=== PATIENT | male | born 1935 | race Caucasian/White ===

== ENCOUNTER 2020-09-16 05:49 | Emergency (ER) | payer MEDICARE, BC, MEDICAID, OTHER ==
[2020-09-16] MEDS ORDERED: Sodium Chloride 0.9% 1,000 ML IV ONE (05:56)
[2020-09-16] MEDS ORDERED: Sodium Chloride 0.9% 10 ML Syringe FLUSH PRN (05:56)
--- NOTE | 2020-09-16 06:00 | EDM.PDOC ---
ED HPI GENERAL MEDICAL PROBLEM - General Chief Complaint: General Stated Complaint: Hypotension Time Seen by Provider: 09/16/20 05:49 Source of Information: Reports: EMS, [facility] Records - History of Present Illness INITIAL COMMENTS - FREE TEXT/NARRATIVE: Rajiv Salgado, 85-year-old male, presents by ambulance secondary of significant hypotension and incontinence of stool that occurred this morning at 0515 hrs. He responds only to pain to examination of the abdomen and is unable to provide any information at time of his arrival. Limited medical history is obtainable via the chart that accompanies the patient and review of [facility] chart gives no recent details precipitating this occurrence. Was seen this month for nursing facility recertification. Onset: Today Onset Date: 09/16/20 Onset Time: 05:15 Duration: Minutes: Location: Reports: Abdomen - Related Data Allergies Allergy/AdvReac Type Severity Reaction Status Date / Time No Known Drug Allergies Allergy Other Verified 09/16/20 06:05 Home Meds: Home Meds Acetaminophen [Tylenol] 650 mg PO BID 09/16/20 [History] Acetaminophen [Tylenol] 650 mg PO Q6H PRN 09/16/20 [History] Docusate Sodium [Colace] 100 mg PO DAILY PRN 09/16/20 [History] Melatonin 3 mg PO BEDTIME PRN 09/16/20 [History] Memantine HCl [Namenda] 10 mg PO DAILY 09/16/20 [History] Saliva Substitute Combo No.9 [Biotene] 2 spray PO QID 09/16/20 [History] Sennosides/Docusate Sodium [Senexon-S 50-8.6 mg Tablet] 2 tab PO BID PRN 09/16/20 [History] Sulfamethoxazole/Trimethoprim [Bactrim Ds Tablet] 1 each PO BID 7 Days #14 tablet 09/16/20 [Rx] bisacodyL [Dulcolax] 10 mg RECTAL DAILY PRN 09/16/20 [History] polyethylene glycoL 3350 [MiraLAX] 17 gm PO DAILY 09/16/20 [History] Past Medical History Cardiovascular History: Reports: Blood Clots/VTE/DVT, Hypertension Respiratory History: Reports: Other (See Below) (COVID-19 hospitalization 05/03/2020 discharge 05/18/2020) Gastrointestinal History: Reports: Chronic Constipation, Other (See Below) (Malnutrition E 46) Musculoskeletal History: Reports: Other (See Below) (Repeated falls) Neurological History: Reports: Alzheimers Disease Endocrine/Metabolic History: Reports: Other (See Below) (Disturbance of salivary secretion K 11.7) - Infectious Disease History Infectious Disease History: Reports: Other (See Below) (COVID-05 June 2020) - History Comment History Comment: [facility]. 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 HEENT is negative for discharge nor deformity. Pupils are 4 mm and slow to respond with no evidence of icterus nor injection. Neck is soft supple and do not appreciate JVD nor bruit. Thorax is mildly diminished but there is very limited inspiratory effort with scattered rhonchi do not appreciate any wheeze. Cardiac distant S1-S2 with a grade 1 systolic murmur. Abdomen has bowel sounds but is extremely tender in the right lower quadrant and left lower quadrant to examination. Lower extremities are free of edema with warm dry skin. He has an ankle bracelet from the nursing facility on his right ankle. #1 Interpretation EKG Date: 09/16/20 Time: 06:15 Rhythm: NSR [place]: Normal P-Wave: Present QRS: Normal ST-T: Normal QT: Normal Comparison: NA - No Prior EKG Course - Vital Signs Last Recorded V/S: Last Vital Signs Temp 97.2 F 09/16/20 05:52 Pulse 85 09/16/20 07:59 Resp 16 09/16/20 07:19 BP 106/73 09/16/20 07:59 Pulse Ox 97 09/16/20 07:19 - Orders/Labs/Meds Orders: Active Orders 24 hr Category Date Time Status EKG Documentation Completion [RC] ASDIRECTED Care 09/16/20 05:56 Active Insert Velarde Catheter [Insert Urinary Catheter] [OM.PC] Care 09/16/20 07:30 Ordered Q24H Peripheral IV Care [RC] . DIRECTED Care 09/16/20 05:56 Active Urinary Catheter Assessment [RC] ASDIRECTED Care 09/16/20 07:17 Active CULTURE URINE [RM] Urgent Lab 09/16/20 07:45 Received Sodium Chloride 0.9% [Normal Saline] 1,000 ml Med 09/16/20 07:00 Active IV ASDIRECTED Sodium Chloride 0.9% [Normal Saline] 50 ml Med 09/16/20 08:30 Active IV ASDIRECTED Sodium Chloride 0.9% [Saline Flush] Med 09/16/20 05:56 Active 10 ml FLUSH Q8HR PRN Isolation [COMM] Routine Oth 09/16/20 06:07 Ordered Peripheral IV Insertion Adult [OM.PC] Routine Oth 09/16/20 05:56 Ordered EKG 12 Lead [EK] Urgent Ther 09/16/20 05:55 Ordered Medication Orders Sodium Chloride (Normal Saline) 1,000 mls @ 200 mls/hr IV ASDIRECTED ELIZABETH Last Infusion: 09/16/20 07:20 Dose: 999 mls/hr Documented by: Admin: 09/16/20 07:06 Dose: 200 mls/hr Documented by: MUNDO Sodium Chloride (Normal Saline) 50 mls @ 200 mls/hr IV ASDIRECTED ELIZABETH Last Admin: 09/16/20 08:29 Dose: 200 mls/hr Documented by: ERIN Sodium Chloride (Saline Flush) 10 ml FLUSH Q8HR PRN PRN Reason: keep vein open Labs: Laboratory Tests 09/16/20 09/16/20 09/16/20 Range/Units 06:00 06:00 06:00 WBC 14.08 H (5.00-10.00) 10^3/uL RBC 5.50 (4.50-6.00) 10^6/uL Hgb 13.6 (13.0-17.0) g/dL Hct 44.6 (40.0-52.0) % MCV 81.1 L (82.0-92.0) fL MCH 24.7 L (27.0-31.0) pg MCHC 30.5 L (32.0-36.0) g/dL RDW 15.1 H (11.5-14.5) % Plt Count 320 (150-400) 10^3/uL MPV 9.0 (7.4-10.4) fL Immature Gran % (Auto) 0.4 (0.0-5.0) % Neut % (Auto) 77.2 H (50.0-70.0) % Lymph % (Auto) 13.8 L (20.0-40.0) % [place] % (Auto) 8.2 H (2.0-8.0) % Eos % (Auto) 0.1 L (1.0-3.0) % Baso % (Auto) 0.3 (0.0-1.0) % Neut # (Auto) 10.85 H (2.50-7.00) 10^3/uL Lymph # (Auto) 1.95 (1.00-4.00) 10^3/uL [place] # (Auto) 1.16 H (0.10-0.80) 10^3/uL Eos # (Auto) 0.02 L (0.10-0.30) 10^3/uL Baso # (Auto) 0.04 (0.00-0.10) 10^3/uL Immature Gran # (Auto) 0.06 (0.00-0.50) 10^3/uL Sodium 139 (136-145) mmol/L Potassium 4.1 (3.5-5.1) mmol/L Chloride 101 (98-107) mmol/L Carbon Dioxide 23.3 (21.0-32.0) mmol/L Anion Gap 18.8 H (5-15) mmol/L BUN 19 H (7-18) mg/dL Creatinine 0.98 (0.51-1.17) mg/dL Est Cr Clr Drug Dosing 60.11 mL/min Estimated GFR (MDRD) > 60 mL/min Glucose 208 H (70-140) mg/dL Lactic Acid 6.0 H (0.4-2.0) mmol/L Calcium 9.2 (8.7-10.3) mg/dL Total Bilirubin 1.0 (0.2-1.0) mg/dL AST 70 H (15-37) U/L ALT 40 (14-63) U/L Alkaline Phosphatase 136 H (46-116) U/L Creatine Kinase 38 (26-276) U/L CK-MB (CK-2) 0.54 (0.00-3.60) ng/mL Troponin I < 0.017 (0.000-0.056) ng/mL Total Protein 6.5 (6.4-8.2) g/dL Albumin 3.16 L (3.40-5.00) g/dL Specimen Type Urine Color (YELLOW) Urine Appearance (CLEAR) Urine pH (5.0-9.0) Ur Specific [place] (1.005-1.030) Urine Protein (NEGATIVE) mg/dL Urine Glucose (UA) (NEGATIVE) mg/dL Urine Ketones (NEGATIVE) mg/dL Urine Occult Blood (NEGATIVE) Urine Nitrite (NEGATIVE) Urine Bilirubin (NEGATIVE) Urine Urobilinogen (0.2-1.0) E.U./dL Ur Leukocyte Esterase (NEGATIVE) U Hyaline Cast (Auto) Urine RBC (0-5) /HPF Urine WBC (0-5) /HPF Ur Epithelial Cells /LPF Urine Bacteria (NONE TO FEW) /HPF Urine Mucus (NEGATIVE) /LPF SARS CoV-2 RNA Rapid JENNY (NEGATIVE) 09/16/20 09/16/20 Range/Units 06:40 07:45 WBC (5.00-10.00) 10^3/uL RBC (4.50-6.00) 10^6/uL Hgb (13.0-17.0) g/dL Hct (40.0-52.0) % MCV (82.0-92.0) fL MCH (27.0-31.0) pg MCHC (32.0-36.0) g/dL RDW (11.5-14.5) % Plt Count (150-400) 10^3/uL MPV (7.4-10.4) fL Immature Gran % (Auto) (0.0-5.0) % Neut % (Auto) (50.0-70.0) % Lymph % (Auto) (20.0-40.0) % [place] % (Auto) (2.0-8.0) % Eos % (Auto) (1.0-3.0) % Baso % (Auto) (0.0-1.0) % Neut # (Auto) (2.50-7.00) 10^3/uL Lymph # (Auto) (1.00-4.00) 10^3/uL [place] # (Auto) (0.10-0.80) 10^3/uL Eos # (Auto) (0.10-0.30) 10^3/uL Baso # (Auto) (0.00-0.10) 10^3/uL Immature Gran # (Auto) (0.00-0.50) 10^3/uL Sodium (136-145) mmol/L Potassium (3.5-5.1) mmol/L Chloride (98-107) mmol/L Carbon Dioxide (21.0-32.0) mmol/L Anion Gap (5-15) mmol/L BUN (7-18) mg/dL Creatinine (0.51-1.17) mg/dL Est Cr Clr Drug Dosing mL/min Estimated GFR (MDRD) mL/min Glucose (70-140) mg/dL Lactic Acid (0.4-2.0) mmol/L Calcium (8.7-10.3) mg/dL Total Bilirubin (0.2-1.0) mg/dL AST (15-37) U/L ALT (14-63) U/L Alkaline Phosphatase (46-116) U/L Creatine Kinase (26-276) U/L CK-MB (CK-2) (0.00-3.60) ng/mL Troponin I (0.000-0.056) ng/mL Total Protein (6.4-8.2) g/dL Albumin (3.40-5.00) g/dL Specimen Type [place] Urine Color Yellow (YELLOW) Urine Appearance Slightly cloudy H (CLEAR) Urine pH 5.5 (5.0-9.0) Ur Specific [place] >= 1.030 (1.005-1.030) Urine Protein 100 H (NEGATIVE) mg/dL Urine Glucose (UA) Negative (NEGATIVE) mg/dL Urine Ketones Trace H (NEGATIVE) mg/dL Urine Occult Blood Moderate H (NEGATIVE) Urine Nitrite Positive H (NEGATIVE) Urine Bilirubin Moderate H (NEGATIVE) Urine Urobilinogen 1.0 (0.2-1.0) E.U./dL Ur Leukocyte Esterase Trace H (NEGATIVE) U Hyaline Cast (Auto) Moderate Urine RBC 75-100 H (0-5) /HPF Urine WBC 10-20 H (0-5) /HPF Ur Epithelial Cells Moderate H /LPF Urine Bacteria Moderate H (NONE TO FEW) /HPF Urine Mucus Few H (NEGATIVE) /LPF SARS CoV-2 RNA Rapid JENNY Negative (NEGATIVE) Meds: Medications Generic Name Dose Route Start Last Admin Trade Name Freq PRN Reason Stop Dose Admin Sodium Chloride 1,000 mls @ 200 mls/hr 09/16/20 07:00 09/16/20 07:20 Normal Saline IV 999 mls/hr ASDIRECTED ELIZABETH Infusion Sodium Chloride 50 mls @ 200 mls/hr 09/16/20 08:30 09/16/20 08:29 Normal Saline IV 200 mls/hr ASDIRECTED ELIZABETH Administration Sodium Chloride 10 ml 09/16/20 05:56 Saline Flush FLUSH Q8HR PRN keep vein open Discontinued Medications Generic Name Dose Route Start Last Admin Trade Name Freq PRN Reason Stop Dose Admin Sodium Chloride 1,000 mls @ 999 mls/hr 09/16/20 05:56 09/16/20 06:04 Normal Saline IV 09/16/20 06:56 999 mls/hr .BOLUS ONE Administration Meropenem 1 gm/ Sodium 100 mls @ 200 mls/hr 09/16/20 07:22 09/16/20 07:36 Chloride IV 09/16/20 07:51 200 mls/hr ONETIME ONE Administration Sodium Chloride Confirm 09/16/20 07:34 09/16/20 07:58 Normal Saline Administered 09/16/20 07:35 Not Given Dose 100 mls @ as directed .ROUTE .STK-MED ONE Iopamidol 75 ml 09/16/20 08:18 09/16/20 08:29 Isovue-370 (76%) IVPUSH 09/16/20 08:19 75 ml ONETIME ONE Administration - Re-Assessments/Exams Free Text/Narrative Re-Assessment/Exam: 09/16/20 06:32 Mr. Salgado does respond now to verbal conversation denying any precipitating evidence of this event. Denies any activity or intake. He continues to remain hypotensive with tenderness in the abdomen. Laboratory analysis pending for contrast CT of the abdomen pelvis. Free Text/Narrative Re-Assessment/Exam: Second IV normal saline rate is increased to wide open secondary of lactic acid returning at 6.0. Likely urosepsis or sepsis of unknown origin at this time will implement a gram of meropenem IV. Awaiting CT abdomen pelvis and urinalysis conclusion. Negative influenza and COVID-19 testing obtained will be admitted to the facility secondary of listed diagnosis. 09/16/20 07:41 Free Text/Narrative Re-Assessment/Exam: 09/16/20 09:09 Verbal call from radiology regarding the severe status of 17 cm mass of the right lobe of the liver which has active hemorrhage. I discussed with Merlin as well as his who they in consult with her daughter Candi decided they will not seek surgical intervention and would prefer hospitalization with comfort cares here at [facility]. 09/16/20 10:20 Discussion between [facility] provider Willow Mazariegos and family with confirmation of status for possible hospice consult and admission. Mr. Salgado will be returned to the [facility] for end-of-life comfort cares. Departure - Departure Time of Disposition: 10:21 Disposition: DC/Tfer to [facility] 03 Condition: Poor Clinical Impression: Liver hemorrhage, Multiple lung nodules on CT, Liver mass, right lobe, UTI (urinary tract infection), Hypotensive episode Alzheimer's dementia Qualifiers: Alzheimer's disease onset: late-onset - Discharge Information *PRESCRIPTION DRUG MONITORING PROGRAM REVIEWED*: Not Applicable *COPY OF PRESCRIPTION DRUG MONITORING REPORT IN PATIENT ANGELIA: Not Applicable Prescriptions: Sulfamethoxazole/Trimethoprim [Bactrim Ds Tablet] 1 each PO BID 7 Days #14 tablet Referrals: Candi Serna PA-C [Primary Care Provider] - Forms: ED Department Discharge Additional Instructions: Will be discharged to return to the [facility] in [place] for continue daily regimen with the implementation of Bactrim DS for treating his UTI. Comfort care will be the focus of cares at this time for end-of-life concerns due to the hemorrhagic liver mass that was found today. Medication regimen as previous to be continued. Limiting activities secondary of comfort at this time. Sepsis Event Note (ED) - Evaluation Sepsis Screening Result: No Definite Risk - Focused Exam Vital Signs: Vital Signs Temp Pulse Pulse Resp BP BP Pulse Ox 09/16/20 07:59 85 106/73 09/16/20 07:19 88 16 103/68 97 09/16/20 06:49 89 16 102/70 96 09/16/20 06:22 87 84/54 L 09/16/20 06:06 88 68/47 L 09/16/20 05:52 97.2 F 95 18 92/56 L 96 ED Communication - ED Communication Date/Time Date: 09/16/20 Time Called: 09:10 - Discussed Case With (1) Discussed Case With (1): Admitting Provider Person/s Notified (1): Willow Mazariegos (return to senior living facility) - Problem List & Annotations (1) Hypotensive episode SNOMED Code(s): 87231809 Code(s): I95.9 - HYPOTENSION, UNSPECIFIED Status: Acute Priority: High Current Visit: Yes (2) Incontinence of bowel SNOMED Code(s): 13542753 Code(s): R15.9 - FULL INCONTINENCE OF FECES Status: Acute Priority: High Current Visit: No Qualifiers: Fecal incontinence type: full incontinence of feces Qualified Code(s): R15.9 - Full incontinence of feces (3) Abdominal pain SNOMED Code(s): 81530528 Code(s): R10.9 - UNSPECIFIED ABDOMINAL PAIN Status: Acute Priority: High Current Visit: No Qualifiers: Abdominal location: right lower quadrant Qualified Code(s): R10.31 - Right lower quadrant pain (4) Alzheimer's dementia SNOMED Code(s): 13999400 Code(s): G30.9 - ALZHEIMER'S DISEASE, UNSPECIFIED; F02.80 - DEMENTIA IN OTH DISEASES CLASSD ELSR W/O BEHAVRL DISTURB Status: Chronic Priority: Medium Current Visit: Yes Qualifiers: Alzheimer's disease onset: late-onset (5) Hyperglycemia SNOMED Code(s): 54054434 Code(s): R73.9 - HYPERGLYCEMIA, UNSPECIFIED Status: Acute Priority: Medium Current Visit: No (6) Sepsis SNOMED Code(s): 17315955 Code(s): A41.9 - SEPSIS, UNSPECIFIED ORGANISM Status: Acute Priority: High Current Visit: No Qualifiers: Sepsis acute organ dysfunction status: unspecified (7) UTI (urinary tract infection) SNOMED Code(s): 47749635 Code(s): N39.0 - URINARY TRACT INFECTION, SITE NOT SPECIFIED Status: Acute Current Visit: Yes (8) Liver mass, right lobe SNOMED Code(s): 709882474 Code(s): R16.0 - HEPATOMEGALY, NOT ELSEWHERE CLASSIFIED Status: Acute Current Visit: Yes (9) Liver hemorrhage SNOMED Code(s): 84985747 Code(s): K76.89 - OTHER SPECIFIED DISEASES OF LIVER Status: Acute Current Visit: Yes (10) Multiple lung nodules on CT SNOMED Code(s): 320032206, 092310505 Code(s): R91.8 - OTHER NONSPECIFIC ABNORMAL FINDING OF LUNG FIELD Status: Acute Current Visit: Yes - Problem List Review Problem List Initiated/Reviewed/Updated: Yes - My Orders Last 24 Hours: My Active Orders 09/16/20 05:55 EKG 12 Lead [EK] Urgent 09/16/20 05:56 EKG Documentation Completion [RC] ASDIRECTED Peripheral IV Care [RC] . DIRECTED Sodium Chloride 0.9% [Saline Flush] 10 ml FLUSH Q8HR PRN Peripheral IV Insertion Adult [OM.PC] Routine 09/16/20 06:07 Isolation [COMM] Routine 09/16/20 07:00 Sodium Chloride 0.9% [Normal Saline] 1,000 ml IV ASDIRECTED 09/16/20 07:17 Urinary Catheter Assessment [RC] ASDIRECTED 09/16/20 07:30 Insert Velarde Catheter [Insert Urinary Catheter] [OM.PC] Q24H 09/16/20 07:45 CULTURE URINE [RM] Urgent 09/16/20 08:30 Sodium Chloride 0.9% [Normal Saline] 50 ml IV ASDIRECTED - Assessment/Plan Last 24 Hours: My Active Orders 09/16/20 05:55 EKG 12 Lead [EK] Urgent 09/16/20 05:56 EKG Documentation Completion [RC] ASDIRECTED Peripheral IV Care [RC] . DIRECTED Sodium Chloride 0.9% [Saline Flush] 10 ml FLUSH Q8HR PRN Peripheral IV Insertion Adult [OM.PC] Routine 09/16/20 06:07 Isolation [COMM] Routine 09/16/20 07:00 Sodium Chloride 0.9% [Normal Saline] 1,000 ml IV ASDIRECTED 09/16/20 07:17 Urinary Catheter Assessment [RC] ASDIRECTED 09/16/20 07:30 Insert Velarde Catheter [Insert Urinary Catheter] [OM.PC] Q24H 09/16/20 07:45 CULTURE URINE [RM] Urgent 09/16/20 08:30 Sodium Chloride 0.9% [Normal Saline] 50 ml IV ASDIRECTED Plan: Will be discharged to return to the [facility] in [place] for continue daily regimen with the implementation of Bactrim DS for treating his UTI. Comfort care will be the focus of cares at this time for end-of-life concerns due to the hemorrhagic liver mass that was found today. Medication regimen as previous to be continued. Limiting activities secondary of comfort at this time.
[2020-09-16 06:57] LABS: ANION GAP 18.8 mmol/L (5-15); CHLORIDE,CL 101 mmol/L (98-107); SODIUM,NA 139 mmol/L (136-145)
[2020-09-16] MEDS ORDERED: Sodium Chloride 0.9% 1,000 ML IV SCH (07:00)
[2020-09-16] MEDS ORDERED: Meropenem 1 GM in Sodium Chloride 0.9% 100 ML IV ONE (07:22)
[2020-09-16] MEDS ORDERED: Sodium Chloride 0.9% 100 ML ONE (07:34)
[2020-09-16] MEDS ORDERED: Iopamidol 755 Mg/ML 75 ML Bottle IVPUSH ONE (08:18)
[2020-09-16] MEDS ORDERED: Sodium Chloride 0.9% 50 ML IV SCH (08:30)
--- NOTE | 2020-09-16 08:48 | CT ---
[id number] CT/CT Abdomen Pelvis W IV EXAM: ABDOMEN AND PELVIS CT WITH CONTRAST INDICATION: ABDOMEN PAIN, HYPOTENSIVE. COMPARISON: None. DISCUSSION: The right lobe of the liver is essentially completely replaced by 17.3 x 16.5 x 11 cm mass that is heterogeneous in density with evidence of active hemorrhage in the inferior aspect of the mass which likely accounts for a moderate volume of hemoperitoneum in the abdomen and pelvis. The mass appears to extend into the gallbladder, the upper IVC and right atrium where there is significant narrowing of the IVC. Scattered noncalcified nodules in the lung bases likely represent metastases. The largest identified is in the left lower lobe measuring about 11 mm (image 6 series 2). A mild thick-walled appearance of the colon could be from incomplete distention or colitis. Atherosclerotic plaque throughout the aorta and its major branches. The pancreas, spleen, adrenal glands, kidneys and small bowel are unremarkable. The appendix is not identified. Degenerative changes in the spine. Mild chronic appearing L1 compression fracture. The osseous structures are otherwise unremarkable. Results called at time dictation. IMPRESSION: 1. There is a 17 cm mass replacing the majority of the right lobe of the liver which demonstrates active hemorrhage and moderate associated hemoperitoneum. The mass invades the gallbladder and invades or compresses the IVC and right atrium. 2. A mild thick-walled appearance of the colon could be from incomplete distention or mild colitis. 3. Scattered noncalcified nodules in the lung bases most consistent with metastases. Raudel Pepe MD 09/16/20 0801 Thank you for allowing us to participate in the care of your patient.
--- NOTE | 2020-09-16 08:50 | CR ---
[id number] RAD/RAD Chest PA or AP 1V EXAM: FRONTAL CHEST INDICATION: ABDOMEN PAIN, HYPOTENSION. COMPARISON: Abdomen CT same date. DISCUSSION: Noncalcified nodule seen in the lung bases on CT are not clearly identified radiographically. No acute infiltrates. Normal heart size. IMPRESSION: 1. No acute findings. Raudel Pepe MD 09/16/20 0849 Thank you for allowing us to participate in the care of your patient.
== END 2020-09-16 14:30 ==
LOC: KA.ED 05:49
DX: G30.1 Alzheimer's disease with late onset (principal); F02.80 Dementia in other diseases classified elsewhere, unspecified severity, without behavioral disturbance, psychotic disturbance, mood disturbance, and anxiety; K76.89 Other specified diseases of liver; R94.2 Abnormal results of pulmonary function studies; I10 Essential (primary) hypertension; R16.0 Hepatomegaly, not elsewhere classified; N39.0 Urinary tract infection, site not specified; I95.9 Hypotension, unspecified; Z79.899 Other long term (current) drug therapy; Z20.822 Contact with and (suspected) exposure to COVID-19
CPT/HCPCS: 51702; 71045; 74177; 80053; 81001; 82550; 82553; 83605; 84484; 85025; 87086; 87804; 93005; 96365; 99284; 99285-25; J2185; J7030; Q9967; U0002